=== PATIENT | male | born 1965 | race Caucasian/White ===

== ENCOUNTER 2022-04-08 15:23 | Outpatient (CLI) | payer OTHER, SELFPAY ==
--- OUTSIDE RECORDS SUMMARY | 2022-04-08 07:19 | XMS_ITS | Encounter Summary ---
:1965 Author Organization [facility] Address [address] [place] [address] Care Team Providers Name Role Phone Unassigned, Provider Primary Care Provider Unavailable Reason for Visit Procedure/Equipment (Routine) - Incomplete Specialty Diagnoses / Procedures Referred By Contact Refer red To Contact Diagnoses Primary osteoarthritis of both shoulders Gerry Cheney MD Procedures [place] Injection Shoulder Rt [address] [place], [place] [address] Referral ID Status Reason Start Date Expiration Date Visits V isits Requested Authorized [id number] Incomplete 04/16/2018 07/16/2019 1 1 Encounter Details Date Type Department Care Team Description 04/21/2018 Imaging [facility] Gerry Cheney [place] [address] [facility] [place] [address] [address] [phone] [place], [place] [id number] (Wo rk) Social History Tobacco Use Types Packs/Day Years Used Date Smoking Tobacco: Never Smokeless Tobacco: Never Sex Assigned at Date Recorded Not on file documented as of this encounter Plan of Treatment Not on filedocumented as of this encounter Procedures Procedure Name Priority Date/Time Associated Diagnosis Comme nts FL INJECTION Routine 04/21/2018 9:13 AM Primary osteoarthritis Results for this SHOULDER RT CDT of both shoulders procedure are in the results section. documented in this encounter Results FL Injection Shoulder Rt (04/21/2018 9:13 AM CDT) Anatomical Region Laterality Modality Upper Extremity, Shoulder Radio Fluorosc opy Specimen (Source) Anatomical Collection Method Collection Time Re ceived Time Location / / Volume Laterality 04/21/2018 8:43 AM CDT Narrative 04/21/2018 9:44 AM CDT FINDINGS: The procedure, goals, risks and benefits of the procedure were discussed with the patient, who gave full written and verbal consent to proceed. The location of the procedure was confirmed, the skin marked, and pause for cause perfor med. Using sterile technique, local anesthesia and fluoroscopic guidance a 22 gauge needle was advanced into the right glenohumeral joint capsule. Intraarticular location of the needle tip was confirmed with the injection of 1 mL of Isovue. Subsequently, 40 mg of triamcinolone (40 mg/mL), and 5 mL ropivacaine was administered without complication. The patient rated his pain as a 6/10 nathan or to the injection, and 4/10 immediately following the injection. Procedure Note Primo Smalls MD - 04/21/2018For matting of this note might be different from the original. FINDINGS: The procedure, goals, risks an d benefits of the procedure were discussed with the patient, who gave full written and verbal consent to proceed. The location of the procedure was confirmed, the skin marked, and pause for cause performed. Using sterile technique, local anesthesia and fluoroscopic guidance a 22 gauge needle was advanced into the right glenohumeral joint capsule. Intraarticular location of the needle tip was confirmed with the injection of 1 mL of Isovue. Subsequently, 40 mg of triamcinolone (40 mg/mL), and 5 mL ropivacaine was administered without complication. The patient rated his pain as a 6/10 nathan or to the injection, and 4/10 immediately following the injection. Gerry Cheney MD [facility] documented in this encounter Visit Diagnoses Diagnosis Primary osteoarthritis of both shoulders documented in this encounter Administered Medications Inactive Administered Medications - up to 3 most recent administrations Medication Order MAR Action Action Date Dose Rate Site iopamidol (ISOVUE-200) 41 % Given 04/21/2018 9:30 AM CDT 3 mL injection 3 mL 3 mL, Intracapsular, ONCE, On 04/21/18 at 0930, For 1 dose, EXP: 05/02 ropivacaine (NAROPIN) injection 25 mg Given 04/21/2018 9:30 AM CDT 25 mg 25 mg (5 mL), Intracapsular, ONCE, On Fri04/21/18 at 0930, For 1 dose, EXP: 10/02 triamcinolone acetonide (KENALOG-40) 40 MG/ML Given 9:30 AM CDT 40 mg injection 40 mg 40 mg, Intracapsular, ONCE, On Fri04/21/18 at 0930, For 1 dose, EXP: 09/02 documented in this encounter Care Teams Senior Advisory Relationship Specialty Start Date End Date Unassigned, Provider PCP - General 06/16/[address] [place] [id number] documented as of this encounter
--- OUTSIDE RECORDS SUMMARY | 2022-04-08 07:19 | XMS_ITS | Encounter Summary ---
:1965 Author Organization [facility] Address [address] [place] [address] Care Team Providers Name Role Phone Unassigned, Provider Primary Care Provider Unavailable Reason for Referral Procedure/Equipment (Routine) - Incomplete Specialty Diagnoses / Procedures Referred By Contact Refer red To Contact Diagnoses Primary osteoarthritis of both shoulders Gerry Cheney MD Procedures [place] Injection Shoulder Rt [address] [facility] [address] [place] [address] Referral ID Status Reason Start Date Expiration Date Visits V isits Requested Authorized [id number] Incomplete 04/16/2018 07/16/2019 1 1 Procedure/Equipment (Routine) - Incomplete Specialty Diagnoses / Procedures Referred By Contact Refer red To Contact Diagnoses Primary osteoarthritis of both shoulders Gerry Cheney MD Procedures [place] Injection Shoulder Lt [address] [facility] [facility] [address] [place] [address] Referral ID Status Reason Start Date Expiration Date Visits V isits Requested Authorized [id number] Incomplete 04/16/2018 07/16/2019 1 1 Procedure/Equipment (Routine) - Incomplete Specialty Diagnoses / Procedures Referred By Contact Refer red To Contact Diagnoses Primary osteoarthritis of both shoulders Gerry Cheney MD Procedures XR Shoulder Rt 2+ Views [address] [place] [address] Referral ID Status Reason Start Date Expiration Date Visits V isits Requested Authorized [id number] Incomplete 04/16/2018 07/16/2019 1 1 Procedure/Equipment (Routine) - Incomplete Specialty Diagnoses / Procedures Referred By Contact Refer red To Contact Diagnoses Primary osteoarthritis of both shoulders Gerry Cheney MD Procedures XR Shoulder Lt 2+ Views [address] [facility] [place], [place] [address] Referral ID Status Reason Start Date Expiration Date Visits V isits Requested Authorized [id number] Incomplete 04/16/2018 07/16/2019 1 1 Reason for Visit Reason Comments SHOULDER PAIN bilateral Encounter Details Date Type Department Care Team Description 04/16/2018 Office Visit [facility] Gerry Cheney Primary osteoarthritis CENTER MD Bishnu of both shoulders [address] [facility] [address] [facility] (Primary Dx) [place] [address] [phone] Social History Tobacco Use Types Packs/Day Years Used Date Smoking Tobacco: Never Smokeless Tobacco: Never Sex Assigned at Date Recorded Not on file documented as of this encounter Last Filed Vital Signs Vital Sign Reading Time Taken Comments Blood Pressure - - Pulse - - Temperature - - Respiratory Rate - - Oxygen Saturation - - Inhaled Oxygen Concentration - - Weight 102.1 kg (225 lb) 04/16/2018 12:13 PM CDT Height 174 cm (5' 8.5) 04/16/2018 12:13 PM CDT Body Mass Index 33.71 04/16/2018 12:13 PM CDT documented in this encounter Progress Notes Gerry Cheney MD - 04/16/2018 11:40 AM CDT [facility] Orthopaedic Surgery Consultation 04/16/2018 Chief Complaint: Bilateral Shoulder Pain History of Present Illness: Mil Day is a right hand dominant 53 y.o. male with history of a left shoulder Z[place] procedure who presents for evaluation of bilateral shoulder pain, left worse than right. The patient reports that he injured his left shoulder playing football in high school, and it has never felt quite normal since the injury. He notes that although he did have bilateral shoulder pain, the right pain haslargely improved. Left shoulder pain is localized to the top and posterior shoulder. Sleep is disrupted secondary to pain. Denies numbness or tingling. Denies other history of trauma, injury, or surgery. Referring Provider: Self-Referral, Patient Allergies: No known allergies. Current Medications: Lisinopril. Past Medical History: Hypertension. Limited range of motion in the shoulder. Past Surgical History: Left shoulder [place] procedure. 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 Family History: Cancer in the mother and father. Heart disease in the mother and father. 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 Lives with and 2 children. Enjoys golf, hockey and fishing. The General Medical History Form dated 04/16/2018 was updated and reviewed with the patient; this is located in [employer] in [employer]. Review of Systems: A 15-point review of systems obtained and negative unless as mentioned above. Physical Exam: General: Alert, oriented, no distress. Skin: Cool to touch without erythema, ecchymosis, or lesions. Without dystrophic changes. Neuro: Neurovascularly intact distally. Sensation intact to light touch. Cardiovascular: Capillary refill brisk. Right Shoulder: Range of motion: Forward flexion to 115 degrees, external rotation to 30 degrees, external rotation in abduction to 90 degrees, internal rotation in abduction to 0 degrees. Negative O'namrata's. Negative Speeds. Negative crossarm. Left Shoulder: Range of motion: Forward flexion to 100 degrees, external rotation to 15 degrees, external rotation in abduction to 70 degrees, internal rotation in abduction to 10 degrees. Positive O'namrata's. Negative Speeds. Negative crossarm. Imaging: MR of the bilateral shoulder WO IV contrast, outside imaging (03/20/18): CONCLUSION: Right shoulder 1. Degenerative change involving the glenohumeral articulation with areas of near full-thickness cartilage loss as outlined above. 2. Mild to moderate supraspinatus tendinosis with superimposed small area of interstitial degeneration/delamination. No high-grade partial or full-thickness tear. 3. Moderate AC joint arthrosis. CONCLUSION: Left shoulder 1. Degenerative and postsurgical change involving the glenohumeral articulation. Associated tearing of the labrum. 2. Mild supraspinatus tendinosis without tear. 3. Mild to moderate AC joint arthrosis. I independently reviewed and interpreted the imaging studies above; the results were discussed with the patient. Radiographs of the bilateral shoulder - 2+ views (04/16/18): Right shoulder: 3 views demonstrate glenohumeral osteoarthritis. No fracture or loose body. AC jointarthrosis. Left Shoulder: 3 views demonstrate glenohumeral osteoarthritis. Previous coracoid transfer. AC jointarthrosis. I ordered and independently reviewed and interpreted the imaging studies above; the results were discussed with the patient. Assessment: Diagnosis and Associated Orders ICD-10-CM 1. Primary osteoarthritis of both shoulders M19.011 lisinopril (ZESTRIL) 10 MG tablet M19.012 XR Shoulder Lt 2+ Views XR Shoulder Rt 2+ Views FL Injection Shoulder Lt FL Injection Shoulder Rt Right shoulder standard OA Left shoulder posterior instability OA Mil had a chance to have all of his questions answered. We discussed both surgical and non-surgical treatment options. Non-surgical intervention included stretching and strengthening with physical therapy and fluoroscopically guided intraarticular corticosteroid shoulder injections. At this time, he would like to proceed with the bilateral shoulder corticosteroid injections, after receiving bilateral shoulder x-rays today. Plan: 1. Fluoroscopically guided intraarticular bilateral shoulder injections (04/21/18). 2. Follow-up in 6 weeks. cc: PATIENT SELF REFERRAL, [place] [address] Scribe Disclosure: IKhang, am serving as a scribe to document services personally performed by Gerry Cheney MD at this visit, based upon the provider's statements to me. All documentation has been reviewed by the aforementioned provider prior to being entered into the official medical record. Portions of this medical record were completed by a scribe. UPON MY REVIEW AND AUTHENTICATION BY ELECTRONIC SIGNATURE, this confirms (a) I performed the applicable clinical services, and (b) the recordis accurate. Gerry Cheney MD documented in this encounter Plan of Treatment Not on filedocumented as of this encounter Results FL Injection Shoulder Rt [...] immediately following the injection. Gerry Cheney MD RAD FL FL Injection Shoulder Lt (04/21/2018 8:43 AM CDT) Anatomical Region Laterality Modality Upper Extremity, Shoulder Radio Fluorosc opy Specimen (Source) Anatomical Collection Method Collection Time Re ceived Time Location / / Volume Laterality 04/21/2018 8:03 AM CDT Narrative 04/21/2018 9:42 AM CDT FINDINGS: The procedure, goals, risks and benefits of the procedure were discussed with the patient, who gave full written and verbal consent to proceed. The location of the procedure was confirmed, the skin marked, and pause for cause perfor med. Using sterile technique, local anesthesia and fluoroscopic guidance a 22 gauge needle was advanced into the left glenohumeral joint capsule. Intraarticular l ocation of the needle tip was confirmed with the injection of 1 mL of Isovue. Subsequently, 40 mg of triamcinolone (40 mg/mL), and 5 mL ropivacaine was administered without complication. The patient rated his pain as a 8/10 nathan or to the injection, and 2/10 immediately following the injection. Procedure Note Primo [...] 22 gauge needle was advanced into the left glenohumeral joint capsule. Intraarticular location of the needle tip was confirmed with the injection of 1 mL of Isovue. Subsequently, 40 mg of triamcinolone (40 mg/mL), and 5 mL ropivacaine was administered without complication. The patient rated his pain as a 8/10 nathan or to the injection, and 2/10 immediately following the injection. Gerry Cheney MD RAD FL XR Shoulder Rt 2+ Views (04/16/2018 1:00 PM CDT) Anatomical Region Laterality Modality Upper Extremity, Shoulder Digital Radiog latasha Specimen (Source) Anatomical Location Collection Method / Collectio n Time Received Time / Laterality Volume Narrative 04/16/2018 5:48 PM CDT Right shoulder: 3 views demonstrate glenohumeral osteoarthritis. No fracture or loose body. AC joint arthros is. Left Shoulder: 3 views demonstrate gleno humeral osteoarthritis. Previous coracoid transfer. AC joint arthrosis. Gerry Cheney MD RAD GD XR Shoulder Lt 2+ Views (04/16/2018 1:00 PM CDT) Anatomical Region Laterality Modality Upper Extremity, Shoulder Digital Radiog latasha Specimen (Source) Anatomical Location Collection Method / Collectio n Time Received Time / Laterality Volume Narrative 04/16/2018 5:48 PM CDT Right shoulder: 3 views demonstrate glenohumeral osteoarthritis. No fracture or loose body. AC joint arthros is. Left Shoulder: 3 views demonstrate gleno humeral osteoarthritis. Previous coracoid transfer. AC joint arthrosis. Gerry Cheney MD RAD GD documented in this encounter Visit Diagnoses Diagnosis Primary osteoarthritis of both shoulders - Primary Bilateral shoulder pain, unspecified chr onicity Primary osteoarthritis of both shoulders Primary osteoarthritis of both shoulders documented in this encounter Care Teams Web Services Developer Relationship Specialty Start Date End Date Unassigned, Provider PCP - General 06/16/[address] [place] [id number] documented as of this encounter
--- OUTSIDE RECORDS SUMMARY | 2022-04-08 07:19 | XMS_ITS | Encounter Summary ---
:1965 Author Organization [facility] Address [address] [place] [address] Care Team Providers Name Role Phone Unassigned, Provider Primary Care Provider Unavailable Reason for Visit Procedure/Equipment (Routine) - Incomplete Specialty Diagnoses / Procedures Referred By Contact Refer red To Contact Diagnoses Primary osteoarthritis of both shoulders Gerry Cheney MD Procedures [place] Injection Shoulder Lt [address] [facility] [place], [place] [address] Referral ID Status Reason Start Date Expiration Date Visits V isits Requested Authorized [id number] Incomplete 04/16/2018 07/16/2019 1 1 Encounter Details Date Type Department Care Team Description 04/21/2018 Imaging [place] [facility] [place] [address] [facility] [place] [address] [address] [facility] [phone] [place], [place] [address] (Wo rk) Social History Tobacco Use Types Packs/Day Years Used Date Smoking Tobacco: Never Smokeless Tobacco: Never Sex Assigned at Date Recorded Not on file documented as of this encounter Plan of Treatment Not on filedocumented as of this encounter Procedures Procedure Name Priority Date/Time Associated Diagnosis Comme nts FL INJECTION Routine 04/21/2018 8:43 AM Primary osteoarthritis Results for this SHOULDER LT CDT of both shoulders procedure are in the results section. documented in this encounter Results [place] Injection Shoulder Lt (04/21/2018 8:43 AM [...] immediately following the injection. Gerry Cheney MD [facility] documented in this encounter Visit Diagnoses Diagnosis Primary osteoarthritis of both shoulders documented in this encounter Administered Medications Inactive Administered Medications - up to 3 most recent administrations Medication Order MAR Action Action Date Dose Rate Site iopamidol (ISOVUE-200) 41 % Given 04/21/2018 9:30 AM CDT 3 mL injection 3 mL 3 mL, Intracapsular, ONCE, On Fri04/21/18 at 0930, For 1 dose, EXP: 05/02 [...] 09/02 documented in this encounter Care Teams Fine Arts Packer Relationship Specialty Start Date End Date Unassigned, Provider PCP - General 06/16/[address] [place] [id number] documented as of this encounter
--- OUTSIDE RECORDS SUMMARY | 2022-04-08 07:19 | XMS_ITS | Encounter Summary ---
:1965 Author [facility] Address [address] [place] [address] Care Team Providers Name Role Phone Unassigned, Provider Primary Care Provider Unavailable Encounter Details Date Type Department Care Team Description 07/08/2020 scott Wilson [phone] Social History Tobacco Use Types Packs/Day Years Used Date Smoking Tobacco: Never Smokeless Tobacco: Never Sex Assigned at Date Recorded Not on file documented as of this encounter Progress Notes SCOTT PULIDO PROVIDER - 07/19/2020 12:00 AM CST scott Addendum From Provider Visit Date July 08, 2020 Addendum Date July 19, 2020 Mil Day Date of : 63 Provider Marilyn Chinchilla, Nurse Practitioner Note From Provider Maxx Mcneal, Thank you for the callback. To recap: you were treated for sinusitis on 07/08 and you now have minimal sinus pain/pressure. You do feel off with some lightheadedness. You feel your sinuses are inflamed and dry and your upper chest feels tight. You just traveled to [place], [place] yesterday. You are using Flonase. I would suggest adding saline nasal spray too. I actually would give this 2-3 days and then check back in with us if your are still experiencing some symptoms. You mentioned you are concerned about pneumonia. You have no fever, an occasional cough with some production of mucus. Itdoesn't sound like pneumonia at this point. Take good care. BRADLEY Sanders KEEPER SCOTT PULIDO PROVIDER - 07/12/2020 12:00 AM CST scott Addendum From Provider Visit Date July 08, 2020 Addendum Date July 12, 2021 Mil Day Date of : 63 Provider Britt Miguel, Nurse Practitioner Note From Provider Maxx Jaeger,Thanks for Requesting a Call Back. As we discussed, I would recommend continuing on with your antibiotics as prescribed and adding flonase for the nasal pressure. Keep us posted and let us know how things go after you have completed your dosing. If you have any new or worsening symptoms, just call. Take care, Britt Archibald APRN KEEPER [facility] - 07/08/2020 12:00 AM CST scott Treatment Plan Diagnosis Sinusitis Visit Date July 08, 2020 Mil Day Date of : 63 Provider Keely Quinones, Nurse Practitioner Note From Provider Maxx Jaeger, So sorry to hear you???re having these symptoms. I???ve sent a prescription for an antibiotic to your pharmacy. Let???s target your inflammation in order to get you feeling better CHUCK while your antibiotic is beginning to work! The 800 mg of Ibuprofen (4 tablets of the 200 mg strength ibuprofen) with food every 8 hours around the clock for the next 3 days will greatly decrease your inflammation.?? Also taking over the counter Mucinex and drinking lots of fluids will help.??Taking Mucinex, your antibiotic, and ibuprofen all at the same time is safe and necessary to target your symptoms.? ?If you have any questions or concerns, please Request a Call Back at any time. Feel better soon!??BRADLEY Riggs. Treatment Plan Since you have a bacterial infection, let's try an antibiotic. I sent a prescription to [facility]/pharmacy. I???ve also listed a few self-care tips to soothe your symptoms while the antibiotic kills the bacteria. If your symptoms don't improve after 4 days, or if you have questions, select Help to Request a Call Back and we'll adjust your treatment for free. Order(s) amoxicillin-pot clavulanate 275-970 mg tablet Take 1 tablet oral twice a day for 7 days Note: Refills: None Sent To: [facility]/pharmacy [place] [address] [place] [address] Treatment Plan Self Care Tip Topics Inflammation Relief with Ibuprofen Avoid Decongestants and Antihistamines Warm Packs Steam Therapy What to Expect Our goal is to treat the infection and to reduce the inflammation of your sinus tissues to promote drainage. This will make you feel better quickly. If you follow the recommendations I made on the Treatment tab, your symptoms should begin to improve in 4 days of following this treatment plan. If your symptoms haven???t improved after 4 days, select Help to Request a Call Back and we???ll call you back in about an hour to adjust your treatment for free. What to Watch Out For Give us a call immediately if you experience: ??? Vision changes ??? Redness and swelling of the eyes or face ??? Increasing congestion ??? Worsening pain ??? High fevers My Conditions, Orders, Allergies as of July 08, 2020 Standard condition list High Blood Pressure (Hypertension) Current orders amoxicillin-pot clavulanate (amoxicillin-pot clavulanate) lisinopril (lisinopril) Allergies None [employer] Information [employer] [facility] [employer] We are an online clinic open 03/02. If you have any questions or comments about this visit, please call or email [email or web address] documented in this encounter Plan of Treatment Not on filedocumented as of this encounter Visit Diagnoses Not on filedocumented in this encounter Care Teams Side Splitter Relationship Specialty Start Date End Date Unassigned, Provider PCP - General 06/16/[address] [place] [id number] documented as of this encounter
--- OUTSIDE RECORDS SUMMARY | 2022-04-08 07:19 | XMS_ITS | Encounter Summary ---
:1965 Author Organization [facility] Address [address] [place] [address] Care Team Providers Name Role Phone Unassigned, Provider Primary Care Provider Unavailable Reason for Visit Procedure/Equipment (Routine) - Incomplete Specialty Diagnoses / Procedures Referred By Contact Refer red To Contact Diagnoses Primary osteoarthritis of both shoulders Gerry Cheney MD Procedures XR Shoulder Lt 2+ Views [address] [facility] [place], [place] [address] Referral ID Status Reason Start Date Expiration Date Visits V isits Requested Authorized [id number] Incomplete 04/16/2018 07/16/2019 1 1 Encounter Details Date Type Department Care Team Description 04/16/2018 Imaging [facility] Gerry Cheney Bilateral shoulder [address] [facility] Roma Goetz MD pain, unspecified [place], [place] [address] [address] [facility] chronicity [phone] [place] [address] (Wo rk) Social History Tobacco Use Types Packs/Day Years Used Date Smoking Tobacco: Never Smokeless Tobacco: Never Sex Assigned at Date Recorded Not on file documented as of this encounter Plan of Treatment Not on filedocumented as of this encounter Procedures Procedure Name Priority Date/Time Associated Diagnosis Comme nts XR SHOULDER LT 2+ Routine 04/16/2018 1:00 PM Bilateral shoulde r Results for this VIEWS CDT pain, unspecified procedure are in chronicity the results section. XR SHOULDER RT 2+ Routine 04/16/2018 1:00 PM Bilateral shoulde r Results for this VIEWS CDT pain, unspecified procedure are in chronicity the results section. documented in this encounter Results XR Shoulder Rt 2+ Views (04/16/2018 1:00 [...] Previous coracoid transfer. AC joint arthrosis. Gerry HAUSER GD XR Shoulder Lt 2+ Views (04/16/2018 [...] documented in this encounter Visit Diagnoses Diagnosis Bilateral shoulder pain, unspecified chr onicity documented in this encounter Care Teams Certified Medical Technician Relationship Specialty Start Date End Date Unassigned, Provider PCP - General 06/16/[address] [place] [address] documented as of this encounter
--- OUTSIDE RECORDS SUMMARY | 2022-04-08 07:19 | XMS_ITS | Encounter Summary ---
:1965 Author Organization [facility] Address [address] [place] [address] Care Team Providers Name Role Phone Unassigned, Provider Primary Care Provider Unavailable Reason for Visit Procedure/Equipment (Routine) - Incomplete Specialty Diagnoses / Procedures Referred By Contact Refer red To Contact Procedures Gerry Cheney MD Foreign Image(S) MR Shoulder [address] [facility] [address] [place], [place] [address] Referral ID Status Reason Start Date Expiration Date Visits V isits Requested Authorized [id number] Incomplete 04/16/2018 07/16/2019 1 1 Encounter Details Date Type Department Care Team Description 03/20/2018 Imaging Radiology PACS Gerry Cheney MD [address] [place] [address] [place] [address] [place] [address] (Wo rk) Social History Tobacco Use Types Packs/Day Years Used Date Smoking Tobacco: Never Assessed Sex Assigned at Date Recorded Not on file documented as of this encounter Plan of Treatment Not on filedocumented as of this encounter Procedures Procedure Name Priority Date/Time Associated Diagnosis Comme nts FOREIGN IMAGE(S) MR Routine 03/20/2018 12:00 AM R esults for this SHOULDER RT CDT procedure are i n the results section. documented in this encounter Results Foreign Image(S) MR Shoulder Rt (03/20/2018 12:00 AM CDT) Specimen (Source) Anatomical Location Collection Method / Collectio n Time Received Time / Laterality Volume Narrative PN POCT - 04/16/2018 12:14 PM CDT These outside images have been uploaded into PACS. If the results were provided, they will be located in the pa marisel's chart under the Media or Imaging tab. Gerry Cheney MD RAD NON-REPORTABLES Performing Organization Address City/State/ZIP Code Phon e Number POCT PN POCT documented in this encounter Visit Diagnoses Not on filedocumented in this encounter Care Teams Video Production Specialist Relationship Specialty Start Date End Date Unassigned, Provider PCP - General 06/16/[address] [place] [address] documented as of this encounter
--- OUTSIDE RECORDS SUMMARY | 2022-04-08 07:19 | XMS_ITS | Encounter Summary ---
:1965 Author Organization [facility] Address [address] [address] Care Team Providers Name Role Phone Unavailable Primary Care Provider Unavailable Encounter Details Date Type Department Care Team Description 12/06/1988 Emergency [facility] Sinan Camacho MD [address] [place] [address] [address] [facility]. Sinan Camacho MD [address] [place] [address] [place] [address] Social History Tobacco Use Types Packs/Day Years Used Date Smoking Tobacco: Never Assessed Sex Assigned at Date Recorded Not on file documented as of this encounter Plan of Treatment Not on filedocumented as of this encounter Procedures Procedure Name Priority Date/Time Associated Comments Diagnosis CONVERSION DEFAULT Routine 12/06/1988 10:06 PM Re sults for this INTERFACE ORDER CDT procedure ar e in the results section. CONVERSION DEFAULT Routine 12/06/1988 9:55 PM Res ults for this INTERFACE ORDER CDT procedure ar e in the results section. CONVERSION DEFAULT Routine 12/06/1988 9:55 PM Res ults for this INTERFACE ORDER CDT procedure ar e in the results section. documented in this encounter Results Conversion Default Interface Order (12/06/1988 10:06 PM CDT) [facility] Method Time Signature Color YELLOW No normal HP CONVERSION range Turbidity CLEAR No normal HP CONVERSION range Specific [place] 1.013 No normal HP CONVERSION Urine range pH Urine 6.5 No normal HP CONVERSION range Protein Urine NEGATIVE No normal HP CONVERSION range Glucose, NEGATIVE No normal HP CONVERSION Qualitative U range Ketones NEGATIVE No normal HP CONVERSION range U BILI NEGATIVE No normal HP CONVERSION range Blood Urine NEGATIVE No normal HP CONVERSION range Nitrite Urine NEGATIVE No normal HP CONVERSION range Leukocyte NEGATIVE No normal HP CONVERSION Esterase Urine range Urobilinogen NEGATIVE No normal HP CONVERSION Urine range Specimen (Source) Anatomical Collection Method Collection Time Re ceived Time Location / / Volume Laterality 12/06/1988 10:06 PM CDT Sinan Camacho MD LAB_1 Performing Organization Address City/State/ZIP Code Phon e Number HP CONVERSION Conversion Default Interface Order (12/06/1988 9:55 PM CDT) [facility] gist Method Time Signature White Blood Cell 8.6 No normal HP CONVERSION Count range Red Blood Cell 5.26 No normal HP CONVERSION Count range Hemoglobin 15.8 No normal HP CONVERSION range Hematocrit 46.4 No normal HP CONVERSION range Mean Corpuscular 88.2 No normal HP CONVERSION Volume range Mean Corpuscular 30.0 No normal HP CONVERSION Hemoglobin range Mean Corpuscular 34.1 No normal HP CONVERSION Hemoglobin Conc range [place] RDW 12.8 No normal HP CONVERSION range Platelet Count 305 No normal HP CONVERSION range Neutrophils 82 No normal HP CONVERSION range Lymphocytes 15 No normal HP CONVERSION range Monocyte 2 No normal HP CONVERSION range Basophils 1 No normal HP CONVERSION range Platelet NORMAL No normal HP CONVERSION Estimate range WBC Correction 8.6 No normal HP CONVERSION For NRBC range Specimen (Source) Anatomical Collection Method Collection Time Re ceived Time Location / / Volume Laterality 12/06/1988 9:55 PM CDT Sinan Camacho MD LAB_1 Performing Organization Address City/State/ZIP Code Phon e Number HP CONVERSION Conversion Default Interface Order (12/06/1988 9:55 PM CDT) athologist Signature Amylase Serum 26 No normal HP CONVERSION range Specimen (Source) Anatomical Collection Method Collection Time Re ceived Time Location / / Volume Laterality 12/06/1988 9:55 PM CDT Sinan Camacho MD LAB_1 Performing Organization Address City/State/ZIP Code Phon e Number HP CONVERSION documented in this encounter Visit Diagnoses Not on filedocumented in this encounter
--- OUTSIDE RECORDS SUMMARY | 2022-04-08 07:19 | XMS_ITS | Encounter Summary ---
:1965 Author Organization [facility] [facility] Address [address] [place] [address] Care Team Providers Name Role Phone Unassigned, Provider Primary Care Provider Unavailable Reason for Visit Reason Comments Dental Conversion Legacy EDR to [place] convers ion Encounter Details Date Type Department Care Team Description 12/19/2016 Dental Conversion [facility] Nicol Sarabia, [facility] [address] [address] [phone] (Wo rk) Social History Tobacco Use Types Packs/Day Years Used Date Smoking Tobacco: Never Assessed Sex Assigned at Date Recorded Not on file documented as of this encounter Discharge Summaries Interface, In Edr Dental Conversion - 04/05/2017 12:00 AM CDT EDR Pt Notes: 07/03/15 NS - left mess re fail hyg appt Interface, In Edr Dental Conversion - 12/01/2013 12:00 AM CDT EDR dismissed Clerical Popup Note, entered 12/01/2013: pt needs to sign a tx est Interface, In Edr Dental Conversion - 03/05/2012 12:00 AM CDT EDR Provider Popup Note, entered 03/05/2012: perio maint every 6 mo , exam 12 mo , DDF 24 mo Interface, In Edr Dental Conversion - 09/17/2011 12:00 AM CST EDR dismissed Popup Note, entered 09/17/2011: Pt has a credit on acct/New pt coupon L SETTER Interface, In Edr Dental Conversion - 09/17/2011 12:00 AM CST EDR dismissed Popup Note, entered 09/17/2011: Pt has a credit on acct/New pt coupon L SETTER documented in this encounter Miscellaneous Notes Miscellaneous - Interface, In Edr Dental Conversion - 07/03/2015 12:00 AM JEWEL SETTER 07/03/2015: No Show Call: left mess re fail hyg L SETTER Miscellaneous - Interface, In Edr Dental Conversion - 06/22/2015 12:00 AM JEWEL SETTER 06/22/2015: Left Message: lm for pt to call back shows that ins ended 03/13/2015 need to go over fees L SETTER Miscellaneous - Interface, In Edr Dental Conversion - 04/07/2013 12:00 AM CDT 04/07/2013: Overdue Recall Call: 04/07/13 LM to sched future prophy [email or web address] Miscellaneous - Interface, In Edr Dental Conversion - 08/12/2011 12:00 AM JEWEL SETTER 08/12/2011: New Patient Coupon Offer: applied to acct today came over on the fax machine L SETTER Miscellaneous - Interface, In Edr Dental Conversion - 09/03/2010 12:00 AM JEWEL SETTER 09/03/2010: Outgoing Phone Call: Called and asked for the pt and someone hung up the phone on me L SETTER Miscellaneous - Interface, In Edr Dental Conversion - 07/25/2010 12:00 AM JEWEL SETTER 07/25/2010: Outgoing Phone Call: Lm for pt to call regarding credit on acct L SETTER Miscellaneous - Interface, In Edr Dental Conversion - 06/21/2010 12:00 AM JEWEL SETTER 06/21/2010: Outgoing Phone Call: Called and talked to his son and he told me he would give dad a mess for me. L SETTER documented in this encounter Plan of Treatment Not on filedocumented as of this encounter Visit Diagnoses Not on filedocumented in this encounter Care Teams Nuclear Technician Relationship Specialty Start Date End Date Unassigned, Provider PCP - General 06/16/[address] [place] [phone] documented as of this encounter
--- OUTSIDE RECORDS SUMMARY | 2022-04-08 07:19 | XMS_ITS | Encounter Summary ---
:1965 Author Organization [facility] Address [address] [place] [address] Care Team Providers Name Role Phone Unassigned, Provider Primary Care Provider Unavailable Reason for Visit Procedure/Equipment (Routine) - Incomplete Specialty Diagnoses / Procedures Referred By Contact Refer red To Contact Procedures Gerry Cheney MD Foreign Image(S) MR Shoulder [address] [facility] [address] [place], [place] [address] Referral ID Status Reason Start Date Expiration Date Visits V isits Requested Authorized [id number] Incomplete 04/16/2018 07/16/2019 1 1 Encounter Details Date Type Department Care Team Description 03/20/2018 Imaging Radiology PACS Gerry Cheney MD [address] [place] [address] [place] [address] [place] [address] (Wo rk) Social History Tobacco Use Types Packs/Day Years Used Date Smoking Tobacco: Never Assessed Sex Assigned at Date Recorded Not on file documented as of this encounter Plan of Treatment Not on filedocumented as of this encounter Procedures Procedure Name Priority Date/Time Associated Diagnosis Comme nts FOREIGN IMAGE(S) MR Routine 03/20/2018 12:05 AM R esults for this SHOULDER LT CDT procedure are i n the results section. documented in this encounter Results Foreign Image(S) MR Shoulder Lt (03/20/2018 12:05 AM CDT) Specimen (Source) Anatomical Location Collection Method / Collectio n Time Received Time / Laterality Volume Narrative PN POCT - 04/16/2018 12:17 PM CDT These outside images have been uploaded into PACS. If the results were provided, they will be located in the pa marisel's chart under the Media or Imaging tab. Gerry Cheney MD RAD NON-REPORTABLES Performing Organization Address City/State/ZIP Code Phon e Number POCT PN POCT documented in this encounter Visit Diagnoses Not on filedocumented in this encounter Care Teams Strike Off Machine Operator Relationship Specialty Start Date End Date Unassigned, Provider PCP - General 06/16/[address] [place] [address] documented as of this encounter
--- OUTSIDE RECORDS SUMMARY | 2022-04-08 07:19 | XMS_ITS ---
:1965 Author Care Team Providers Name Role Phone JASMIN CRANE MD Primary Care Provider [phone] Allergies Code Code System Name Reaction Severity Status Onset 274475 RxNorm Demerol ? ? Active 03/31/2015 Medications Name Status Start Date Stop Date ? ? amoxicillin 875 mg-potassium clavulanate 125 mg tablet Completed ? 12/12/2020 TAKE 1 TABLET BY MOUTH TWICE A DAY ciprofloxacin 500 mg tablet Completed ? 07/2020 lisinopril 10 mg tablet Active ? Not avai lable Problems Name Status Onset Date Source ? Increased Frequency of Urination Active 04/06/2012 History Procedures Date Name Performed by ? 03/14/2021 Colonoscopy Information not avai lable ? Vasectomy Information not avai lable ? Prostate Surgery Information not avai lable ? Orthopedic Surgery Information not avai lable ? Hernia Repair Information not avai lable Results Lab Results Date Name Specimen Result Interpretation Description Value Range Status Address ? 12/12/2020 Urinalysis, Dipstick Urine ? No observation recor ded. ? Urinalysis, Dipstick ? pH-Status 7.0 ? ? Past Encounters 12/12/2020 Prostatitis Aguilar Salamanca MD: [address] [facility] [place] [address], Ph. Social History Tobacco Smoking Status Never Smoker Vaccine List None recorded. Plan of Care Reminders Provider Appointments None recorded. ? ? Lab None recorded. ? ? Referral None recorded. ? ? Procedures None recorded. ? ? Surgeries None recorded. ? ? Imaging None recorded. ? ? Vitals Height Weight BMI 5 ft 10 in 215 lbs 30.8 kg/m2
--- OUTSIDE RECORDS SUMMARY | 2022-04-08 07:19 | XMS_ITS | Clinical Summary ---
:1965 Author Organization [facility] Address [address] [place] [address] Care Team Providers Name Role Phone Unassigned, Provider Primary Care Provider Unavailable Source Comments You are receiving this document as you are listed as the primary care provider,follow-up provider, or the patient has been referred to you for consultation.This is in compliance with the Medicare and Medicaid EHR Incentive Program,which states Providers who transition their patient to another setting of careor provider of care or refers their patient to another provider of care shouldprovide summarycare record for each transition of care or referral. [facility] Allergies No known active allergies Medications Medication Sig Dispensed Refills Start Date End Date Status lisinopril (ZESTRIL) Take 10 mg by 0 Active 10 MG mouth daily. tabletIndications: Indications: High Hypertension Blood Pressure Disorder Active Problems No known active problems Social History Tobacco Use Types Packs/Day Years Used Date Smoking Tobacco: Never Smokeless Tobacco: Never Sex Assigned at Date Recorded Not on file Last Filed Vital Signs Vital Sign Reading Time Taken Comments Blood Pressure - - Pulse - - Temperature - - Respiratory Rate - - Oxygen Saturation - - Inhaled Oxygen Concentration - - Weight 102.1 kg (225 lb) 04/16/2018 12:13 PM CDT Height 174 cm (5' 8.5) 04/16/2018 12:13 PM CDT Body Mass Index 33.71 04/16/2018 12:13 PM CDT Plan of Treatment Health Maintenance Due Date Last Done Comments Colon Cancer Screening Plan 1965 Due Hep C Screening (Preventive 1965 Services) HepB (1) 1965 PSA Screening Discussion 1965 COVID-19 Vaccine (#1) 1965 HIV Screening (Preventive 1980 Services) Adult Preventive Visit 01/29/1982 DTaP/Tdap/Td (1 - Tdap) 01/29/1983 Cholesterol 01/29/1999 Zoster/Shingles (1 of 2) 01/29/2014 Influenza (#1) 2022 04/10/2020, 04/16/2019, 04/27/2018, Additional history exists HepA Aged Out No longer eligib le based on patient 's age to complete this topic Hib Aged Out No longer eligib le based on patient 's age to complete this topic IPV (Polio) Aged Out No longer eligib le based on patient 's age to complete this topic MCV4 Aged Out No longer eligib le based on patient 's age to complete this topic Pneumococcal Aged Out No longer eligib le based on patient 's age to complete this topic Insurance Payer Benefit Plan / Subscriber ID Effective Dates Phone Addre ss Type Group BCBS BCBS OUT OF [id number] 2017-Present [address] [address] [place] [address] (Work) [phone] [place] Personal/Family Self 1965 [address] [phone] [place], [place] (Work[place] [phone] [place] Personal/Family Self 1965 [address] [phone] [place] (Work) [phone] [place] Personal/Family Self 1965 [address] [phone] [place], [place] (Work) [phone] Care Teams Oil Well Fishing Tool Technician Relationship Specialty Start Date End Date Unassigned, Provider PCP - General 06/16/[address] [place] [address], [place] [address]
[2022-04-08 13:35] LABS: Albumin* 4.4 g/dL (3.3-5.0)
[2022-04-08 13:36] LABS: Chloride* 103 mmol/L (96-114); Sodium* 137 mmol/L (135-149)
[2022-04-08 13:38] LABS: Aspartate Amino Transferase* 33 U/L (12-35); Bilirubin Total* 0.8 mg/dL (0.1-1.5); Carbon Dioxide* 27 mmol/L (20-32); Cholesterol* 128 mg/dL (90-199); Creatinine* 1.1 mg/dL (0.5-1.5); Estimated Glomerular Filt Rate 78 ml/min; Total Protein* 6.7 g/dL (6.0-8.3)
[2022-04-08 13:39] LABS: Alanine Aminotransferase* 29 U/L (4-50); Alkaline Phosphatase* 69 U/L (40-150); Blood Urea Nitrogen* 13 mg/dL (7-30); Glucose* 101 mg/dL (60-115); HDL Cholesterol* 42 mg/dL (>=40); LDL Cholesterol Calculated 64 mg/dL (<100); Triglycerides* 108 mg/dL (40-149)
[2022-04-08 14:10] LABS: PSA Screen* 0.54 ng/mL (0.10-4.00)
[2022-04-08 14:37] LABS: Potassium* 4.3 mmol/L (3.6-5.1)
== END 2022-04-08 15:24 | disposition home or self-care (01) ==
PROVIDERS: PCP Physician Assistant Medical; Visit Provider Physician Assistant Medical
DX: Z00.00 Encounter for general adult medical examination without abnormal findings (principal); E78.5 Hyperlipidemia, unspecified; I10 Essential (primary) hypertension; Z12.5 Encounter for screening for malignant neoplasm of prostate
CPT/HCPCS: 80053; 80061; 84153

== ENCOUNTER 2023-05-06 08:16 | Outpatient (CLI) | payer OTHER, SELFPAY | END 2023-05-06 08:17 | disposition home or self-care (01) | LOC: NFLDREF 05-09 06:31 | PROVIDERS: PCP Physician Assistant Medical; Referring Provider Physician Assistant Medical; Visit Provider Physician Assistant Medical | DX: Z00.00 Encounter for general adult medical examination without abnormal findings (principal); I10 Essential (primary) hypertension; E78.5 Hyperlipidemia, unspecified; E78.2 Mixed hyperlipidemia; Z12.5 Encounter for screening for malignant neoplasm of prostate | CPT/HCPCS: 80053; 80061; 84153 ==

== ENCOUNTER 2024-03-18 12:43 | Outpatient (CLI) | payer OTHER, SELFPAY ==
--- OUTSIDE RECORDS SUMMARY | 2024-03-18 12:45 | XMS_ITS | Data Portability ---
[facility] Organization [facility] Address [address] [place] [address] Care Team Providers Care Mortgage Advisor Name Role Phone JASMIN CRANE Primary Care Provider Assessment No assessment recorded. Plan of Treatment Reminders Order Date Submit Date Provider Last Modified By Organization Details Last Modified Time Details Appointments None recorded. Lab urinalysi s, dipstick 2020 021 mgneiting Not available 15:24:03 Referral None recorded. Procedures None recorded. Surgeries None recorded. Imaging None recorded. Medication Orders None recorded. Patient TargetsNo targets recorded. Patient InstructionsNo instructions recorded. Reason for Referral None Reported. Results Created Date Observation Date Name Description Value Unit Range Abnormal Flag Note LastModifiedBy Organization Detail LastModifiedTime 12/12/2020 urina lysis , dipst ick pH-Status 7.0 Not Available [facility] [address], [place], [address], 12/12/2020 15:23:27 12/14/19 21 12/12/2020 bladd er scan (PROC ) No observ ation record ed. BARCODE Not Available 2020 10:42:59 Result Notes None recorded. Problems Name Problem SNOMED Code Status Onset Date Resolution Date Notes Provider Name and Address Organization Details Recorded Time Increased frequency of urination 330826054 Active 2011 788.41 : FREQUENCY Not Available [employer] 0 02:01:32 Problem Notes None recorded. Procedures Surgical History Date Name Laterality Status Provider Name and Address Organization Details Recorded Time Colonoscopy completed Winter Marie [facility] 04/20/2021 12:19:51 Bladder Scan completed Aguilar Saalmanca MD [address] [place] [address],[address], [address], [facility] 12/12/2020 15:30:25 Hernia Repair completed Aguilar Salamanca MD [address] [place] [address],[address], [place], [place], [address] [place] [address], [facility] 12/12/2020 15:29:03 Orthopedic Surgery completed Aguilar Salamanca MD [address] [place] [address],[address], [place], [place], [address] [place] [address], [facility] 12/12/2020 15:29:19 Prostate Surgery completed Aguilar Salamanca MD [address] [place] [address],[address], [place], [place], [address] [place] [address], [facility] 12/12/2020 15:29:36 Vasectomy completed Aguilar Salamanca MD [address] [place] [address],[address], [place], [place], [address] [place] [address], [facility] 12/12/2020 15:29:43 Imaging Results Imaging Date Name Status LastModified by Organiz ation Details LastModified Time 12/12/2020 bladder scan (PROC) completed BARCODE Information not available 12/13/2020 10:42:59 Procedure Notes None recorded. Medical Equipment None Reported. Allergies Allergen ID Allergen Name Allergen Category Reaction Reaction Severity Criticality Documentation Date Start Date Code Code System Note Provider Name and Address Organization Details Recorded Time 108849 Demerol medicatio n Not available Not available Not available 12/30/20192014 38478 1 RxNorm React ion: ANXIE TY Not Available [employer] 0 00:46:17 Medications Name Sig Start Date Stop Date Status Note LastModified by Organization Details LastModified Time ciprofloxacin 500 mg tablet 12/12 completed Not Available Not Available Not Available lisinopril 10 mg tablet TAKE 1 TABLET BY MOUTH DAILY. active Not Available Not Available No t Available amoxicillin 875 mg-potassium clavulanate 125 mg tablet TAKE 1 TABLET BY MOUTH TWICE A DAY 12/12 completed Not Available Not Available Not Available Vitals Date Recorded Body height Body mass index (BMI) Body weight Provider Name and Address Organization Details Last Updated DateTime 12/12/2020 177.8 cm 30.8 kg/m2 46000.36 g Aguilar Salamanca MD [address] [place] [address],[address], [address] 12/12/2020 15:27:16 Social History Question Answer Notes LastModified by Organizat ion Details LastModified Time Tobacco Smoking Status Never Smoker Aguilar Salamanca MD [address] [place] [address],[address], [address] 12/12/2020 15:28:08 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 12/12/2020 [email or web address] Information not available 12/12/2020 Sex: Unknown Functional Status None recorded. Mental Status None recorded. Family History Relationship Description Onset Age of this Age Resolved Age Notes Mother Family history of malignant neoplasm Father Family history of malignant neoplasm Medical History Condition Response Sexually Transmitted Infection N Diabetes N Bleeding Disorder N Other N High Blood Pressure Y Kidney Stones N High Cholesterol N GERD/Acid Reflux N Heart Disease N Cancer N Lung Disease N Depression N Past Encounters Encounter ID Performer Location Encounter Start Date Encounter Closed Date Diagnosis/Indication Diagnosis SNOMED-CT Code Diagnosis ICD10 Code [id number] Aguilar Salamanca MD [facility] [address] [place] [address] 12/12/2020 14:51:11 12/14/2020 09:49:24 Prostatitis 8136307 N41.9 Health Concerns Section Related Observation LastModified by Organization Detai ls LastModified Time None Recorded Concern Status LastModified by Organization Details LastModified Time None Recorded Advance Directives Directive None Recorded Payers Encounter Date Sequence Insurance Name Policy Number Policy Anderson Covered Member ID Anderson Member ID Guarantor Name 12/12/2020 1 [facility] [id number] [place] Day [id number] Mil Day Notes Date Note Type Note Provider Name and Address Organization Details Recorded Time 12/12/2020 text/html HPI Notes: 55 YO M here for bladder wall thickening and prostatitis. CT done on 11/29/20. Was having more frequency. Was on an antibiotic course 2 weeks ago for prostatitis. LUTS has gotten better since the antibiotic. He's had prostatitis prior. He has perineal discomfort. It is worse when he sits on his bike. He felt this last year when bike riding outside. He does exercise every other day; a lot of lifting. Negative family history for prostate, breast or ovarian cancers. His Father had mesothelioma. Mohter with liver cancer. He's had urinary frequency in the past. Nocturia 3-4x. Aguilar Salamanca MD [address], [place], [address], [facility] 12/12/2020 15:47:47
--- OUTSIDE RECORDS SUMMARY | 2024-03-18 12:45 | XMS_ITS | Clinical Summary ---
Author Organization [facility] Address [address] [place] [address] Care Team Providers Care Bridge Design Engineer Name Role Phone System, Provider Not In Primary Care Provider Un available Allergies Active Allergy Reactions Criticality Noted Date Comments Demerol Visual Disturbance 01/10/2005 Penicillins Rash 01/10/2005 Tetanus Toxoid Rash 01/10/2005 Tetanus-Diphtheria Toxoids Td 04/16/2007 High fever,nausea Medications Medication Sig Dispensed Refills Start Date End Date Status ORDER FOR DMEIndications:Kevyn watkins general medical examination at a health care facility Blood pressure Cuff 1 0 03/18/2006 Active MULTIPLE VITAMIN OR TABSIndications:Acut e prostatitis,Disorder s of bursae and tendons in shoulder region, unspecified None Entered Act mallorie RA FIBER SUPPLEMENT ORIndications:Routin e general medical examination at a health care facility 1-2 pills qd Ac tive AVODART 0.5 MG OR CAPSIndications:Cordell gn localized hyperplasia of prostate with urinary obstruction and other lower urinary tract symptoms (LUTS)(600.21) 1 CAPSULE DAILY 90 4 05/23/2008 Active DOXAZOSIN MESYLATE 4 MG OR TABS 1 TABLET DAILY Active LISINOPRIL 10 MG OR TABSIndications:Hype rtension 1 tab PO QD (Once per day) MD appointment needed 90 0 06/29/2009 Active Active Problems Problem Noted Date Diagnosed Date CARDIOVASCULAR SCREENING; LDL GOAL LESS THAN 130 05/13/2010 HTN (hypertension) 05/23/2008 Overview: (Problem list name updated by automated process. Provider to review and confirm.) Family History Medical History Relation Comments Hypertension Brother Psychotic Disorder Brother Cancer Father aspestosis Hypertension Maternal Grandfather Hypertension Mother Hypertension Sister Relation Status Comments Brother Alive Daughter Alive Father Maternal Grandfather Maternal Grandmother Mother Alive Paternal Grandfather Paternal Grandmother Sister Alive Son Alive Social History Tobacco Use Types Packs/Day Years Used Date Smoking Tobacco: Never Alcohol Use Standard Drinks/Week Comments No 0 (1 standard drink = 0.6 oz pur e alcohol) Adolescent Education Answer Date Record ed Getting School Help Needed Not on file 04/10 Sex and Gender Information Value Date Recorded Sex Assigned at Not on file Gender Identity Not on file Sexual Orientation Not on file Last Filed Vital Signs Vital Sign Reading Time Taken Comments Blood Pressure 120/79 04/10/2023 1:00 AM CDT Pulse 53 04/10/2023 1:00 AM CDT Temperature 36.2 ??C (97.1 ??F) 04/09/2023 9:49 PM CD T Respiratory Rate 18 04/10/2023 1:00 AM CDT Oxygen Saturation 96% 04/10/2023 1:00 AM CDT Inhaled Oxygen Concentration - - Weight 103.4 kg (228 lb) 06/29/2008 11:00 AM ASSISTANT MANAGER Height 174 cm (5' 8.5) 04/16/2007 9:00 AM CDT Body Mass Index 34.16 04/16/2007 9:00 AM CDT Plan of Treatment Health Maintenance Due Date Last Done Comments ADVANCE CARE PLANNING 1965 ANNUAL REVIEW OF HM ORDERS 1964 CT COLONOGRAPHY 1964 FIT 1965 FLEX SIG 1965 sDNA (Cologuard) 1965 Pneumococcal Vaccine: Pediatrics (0 to 5 Years) and At-Risk Patients (6 to 64 Years) (1 of 2 - PCV) 01/29/1970 HIV SCREENING 01/29/1979 HEPATITIS C SCREENING 01/29/1982 DTAP/TDAP/TD IMMUNIZATION (1 - Tdap) 01/29/1989 YEARLY PREVENTIVE VISIT 05/23/2009 05/23/20 08, 04/16/2007, 03/18/2006, Additional history exists LIPID 05/23/2013 05/23/2008, 1010/2006, 03/24/2006, Additional history exists ZOSTER IMMUNIZATION (2 of 2) 08/15/2021 06/20/2021 PHQ-2 (once per calendar year) 2023 RSV VACCINE (1 - 1-dose 60+ series) 2024 COVID-19 Vaccine (2022- season) 2024 07/19/2021, 10/21/2020, 09/30/2020 INFLUENZA VACCINE (#1) 2024 , 05/08/2021, 04/10/2020, Additional history exists GLUCOSE 04/09/2026 04/09/2023, 05/14, 04/16/2007, Additional history exists COLONOSCOPY 03/14/2031 03/14/2021 COLORECTAL CANCER SCREENING 03/14/2031 HPV IMMUNIZATION Aged Out No longer e ligible based on patient's age to complete this topic MENINGITIS IMMUNIZATION Aged Out No l onger eligible based on patient's age to complete this topic RSV MONOCLONAL ANTIBODY Aged Out No l onger eligible based on patient's age to complete this topic Procedures Procedure Name Priority Date/Time Associated Diagnosis Comments BASIC METABOLIC PANEL STAT 04/09/2023 9:57 PM CDT CL AFF A.M.A. LIPID PANEL Routine 05/23/2008 3:52 PM ASSISTANT MANAGER Annual Physical Exam from Last 3 Months or Most Recently Relevant to Health Maintenance Results * (ABNORMAL) Basic metabolic panel (BMP) (04/09/2023 9:57 PM CDT) Sodium 140 135 - 145 mmol/L 04/09/2023 10:32 PM CDT [facility] Comment:Reference intervals for this test were updated on 04/08/2023 to more accurately reflect our healthy population. There may be differences in the flagging of prior results with similar values performed with this method. Interpretation of those prior results can be made in the context of the updated reference intervals. Potassium 3.9 3.4 - 5.3 mmol/L 04/09/2023 10:32 PM CDT [facility] Chloride 105 98 - 107 mmol/L 04/09/2023 10:32 PM CDT [facility] Carbon Dioxide (CO2) 26 22 - 29 mmol/L 04/09/2023 10:32 PM CDT [facility] Anion Gap 9 7 - 15 mmol/L 04/09/2023 10:32 PM CDT LABORATORY Urea Nitrogen 17.2 8.0 - 23.0 mg/dL 04/09/2023 10:32 PM CDT LABORATORY Creatinine 1.10 0.67 - 1.17 mg/dL 04/09/2023 10:32 PM CDT LABORATORY GFR Estimate 77 >60 mL/min/1. 73m2 04/09/2023 10:32 PM CDT LABORATORY Calcium 9.0 8.6 - 10.0 mg/dL 04/09/2023 10:32 PM CDT LABORATORY Glucose 108(H) 70 - 99 mg/dL 04/09/2023 10:32 PM CDT LABORATORY Blood BLOOD SPECIMEN / Unknown Venipuncture / Unknown 04/09/2023 9:57 PM CDT 04/09/2023 10:09 PM CDT Giana Villafana MD LAB - BLOOD ROLAND LE[facility] Organization Address City/State/ZIP Co de Phone Number LABORATORY [facility] [address] Lab (1st floor, no room number) [place] [address], [facility] [phone] * (ABNORMAL) A.M.A. LIPID PANEL (05/23/2008 3:52 PM ASSISTANT MANAGER) Cholesterol 188 0 - 200 mg/dL [facility] Comment: LDL Cholesterol is the primary guide to therapy: LDL-cholesterol goal in high risk patients is <100 mg/dL and in very high risk patients is <70 mg/dL. The NCEP recommends further evaluation of: patients with cholesterol <200 mg/dL if additional risk factors are present, cholesterol >240 mg/dL, triglycerides >150 mg/dL, or HDL <40 mg/dL. Triglycerides 228(H) 0 - 150 mg/dL [facility] HDL Cholesterol 30(L) 40 - 110 mg/dL [facility] LDL Cholesterol Calculated 112 0 - 129 mg/dL [facility] Comment: LDL Cholesterol is the primary guide to therapy: LDL-cholesterol goal in high risk patients is <100 mg/dL and in very high risk patients is <70 mg/dL. VLDL-Cholesterol 46(H) 0 - 30 mg/dL [facility] Cholesterol/HDL Ratio 6.2(H) 0.0 - 5.0 [facility] 05/23/2008 3:52 PM ASSISTANT MANAGER 05/23/2008 3:57 PM ASSISTANT MANAGER Edvin Sams MD LABORATORY [facility] from Last 3 Months or Most Recently Relevant to Health Maintenance Care Teams Bridge Design Engineer Relationship Specialty Start Date End Date System, Provider Not In PCP - General Clinic 04/09/23
--- OUTSIDE RECORDS SUMMARY | 2024-03-18 12:45 | XMS_ITS | Referral Summary ---
Author Organization [facility] Address [address] [place] [address] Care Team Providers Care Caterers Helper Name Role Phone System, Provider Not In [...] automated process. Provider to review and confirm.) Social History Tobacco Use Types Packs/Day Years [...] 103.4 kg (228 lb) 06/29/2008 11:00 AM BOTTOM LINER Height 174 cm (5' 8.5) 04/16/2007 9:00 AM CDT Body Mass Index 34.16 04/16/2007 9:00 AM CDT Plan of Treatment Not on file Procedures Procedure Name Priority Date/Time Associated Diagnosis Comments BASIC METABOLIC PANEL STAT 04/09/2023 9:57 PM CDT CL AFF A.M.A. LIPID PANEL Routine 05/23/2008 3:52 PM BOTTOM LINER Annual Physical Exam from Last 3 Months or Most Recently Relevant to Health Maintenance Results * (ABNORMAL) Basic metabolic panel (BMP) (04/09/2023 9:57 PM CDT) [facility] Signature Sodium 140 135 - 145 mmol/L 04/09/2023 [...] - 29 mmol/L 04/09/2023 10:32 PM CDT LABORATORY Anion Gap 9 7 - 15 mmol/L 04/09/2023 10:32 PM CDT [facility] Urea Nitrogen 17.2 8.0 - 23.0 mg/dL 04/09/2023 10:32 PM CDT [facility] Creatinine 1.10 0.67 - 1.17 mg/dL 04/09/2023 10:32 PM CDT [facility] GFR Estimate 77 >60 mL/min/1. 73m2 04/09/2023 10:32 PM CDT LABORATORY Calcium 9.0 8.6 - 10.0 mg/dL 04/09/2023 10:32 PM CDT LABORATORY Glucose 108(H) 70 - 99 mg/dL 04/09/2023 10:32 PM CDT LABORATORY Blood BLOOD SPECIMEN / Unknown Venipuncture / Unknown 04/09/2023 9:57 PM CDT 04/09/2023 10:09 PM CDT Giana Villafana MD LAB - BLOOD ROLAND LEYVA [facility] Organization Address City/State/ZIP Co de Phone Number LABORATORY [facility] [address] Lab (1st floor, no room number) [place] [address], [facility] [phone] * (ABNORMAL) A.M.A. LIPID PANEL (05/23/2008 3:52 PM BOTTOM LINER) Cholesterol 188 0 - 200 mg/dL [facility] Comment: LDL Cholesterol is the primary guide to therapy: LDL-cholesterol goal in high risk patients is <100 mg/dL and in very high risk patients is <70 mg/dL. The NCEP recommends further evaluation of: patients with cholesterol <200 mg/dL if additional risk factors are present, cholesterol >240 mg/dL, triglycerides >150 mg/dL, or HDL <40 mg/dL. Triglycerides 228(H) 0 - 150 mg/dL [facility] HDL Cholesterol 30(L) 40 - 110 mg/dL [facility] LDL Cholesterol Calculated 112 0 - 129 mg/dL [facility] Comment: LDL Cholesterol is the primary guide to therapy: LDL-cholesterol goal in high risk patients is <100 mg/dL and in very high risk patients is <70 mg/dL. VLDL-Cholesterol 46(H) 0 - 30 mg/dL [facility] Cholesterol/HDL Ratio 6.2(H) 0.0 - 5.0 [facility] 05/23/2008 3:52 PM BOTTOM LINER 05/23/2008 3:57 PM BOTTOM LINER Edvin Sams MD LABORATORY [facility] from Last 3 Months or Most Recently Relevant to Health Maintenance Care Teams Caterers Helper Relationship Specialty Start Date End Date System, Provider Not In PCP - General Clinic 04/09/23
[2024-03-18 13:37] VITALS: BP 142/76; PULSE 87; RESP 16
--- NOTE | 2024-03-18 13:54 | W.PM.STED ---
Stress Test Note Date Date Seen: 03/18/24 Date of test: 03/18/24 Providers Primary care provider: Nely Hall Stress test physician: Dana Steiner Stress Test Note Stress test ordered: Stress Echo Indication for test: Elevated calcium score, family history coronary artery disease Stress test medicine: None Results discussion: Resting EKG: Sinus bradycardia, 58 beats per minute. Resting blood pressure: 134/87 Stress test: Patient is consented on treadmill stress echo and agrees to proceed. Patient is exercised on the treadmill following standard Charles protocol. Patient was able to exercised 11 minutes 2nd, stopping due to reaching exercise capacity and being above his target heart rate. Patient had equivalent of 12.1 Mets. He exercised to a maximum heart rate of 151 beats per minute which was 111% of a calculated target of 136. He had a maximal blood pressure during exercise of 160/90 giving him a rate pressure product of 20,960. Occasional PVCs were seen but no arrhythmia noted, no concerning ischemic change of the EKG noted. Patient had no concerning symptoms during the stress test. Echo images are pending to couple this for a full formal diagnostic. Impression: Subjectively negative, objectively negative EKG portion of this stress test. Follow up suggested: Patient was discharged home in stable condition. He will await contact by his ordering provider once the formal echo results are in.
== END 2024-03-18 12:44 | disposition home or self-care (01) ==
LOC: STRESS 12:43
PROVIDERS: PCP Physician Assistant Medical; Visit Provider Physician Assistant Medical
DX: R93.1 Abnormal findings on diagnostic imaging of heart and coronary circulation (principal); Z82.49 Family history of ischemic heart disease and other diseases of the circulatory system
CPT/HCPCS: 93016; 93325; 93351

== ENCOUNTER 2024-05-10 08:35 | Outpatient (CLI) | payer OTHER, SELFPAY ==
--- OUTSIDE RECORDS SUMMARY | 2024-05-11 15:59 | XMS_ITS | Referral Summary ---
Author Organization [facility] Address [address] [place] [address] Care Team Providers Care Systems Mechanic Name Role Phone System, Provider Not In Primary Care Provider Un available Allergies Active Allergy Reactions Criticality Noted Date Comments Demerol Visual Disturbance 01/10/2005 Penicillins Rash 01/10/2005 Tetanus Toxoid Rash 01/10/2005 Tetanus-Diphtheria Toxoids Td 04/16/2007 High fever,nausea Medications ORDER FOR DMEIndications:R outine general medical examination at a health care facility Blood pressure Cuff 1 0 6 Active MULTIPLE VITAMIN OR TABSIndications: Acute prostatitis,Diso rders of bursae and tendons in shoulder region, unspecified None Entered Activ e RA FIBER SUPPLEMENT ORIndications:Ro utine general medical examination at a health care facility 1-2 pills qd Active AVODART 0.5 MG OR CAPSIndications: Benign 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 [...] Recorded Sex Assigned at Not on file Legal Sex Male 2:58 AM RAILCAR CARPENTER Gender Identity Not on file Sexual Orientation [...] 103.4 kg (228 lb) 06/29/2008 11:00 AM RAILCAR CARPENTER Height 174 cm (5' 8.5) 04/16/2007 9:00 AM CDT Body Mass Index 34.16 04/16/2007 9:00 AM CDT Plan of Treatment Not on file Procedures Procedure Name Priority Date/Time Associated Diagnosis Comments BASIC METABOLIC PANEL STAT 04/09/2023 9:57 PM CDT CL AFF A.M.A. LIPID PANEL Routine 05/23/2008 3:52 PM RAILCAR CARPENTER Annual Physical Exam from Last 3 Months or Most Recently Relevant to Health Maintenance Results * (ABNORMAL) Basic metabolic panel (BMP) (04/09/2023 9:57 PM CDT) [facility] Sodium 140 135 - 145 mmol/L 04/09/2023 [...] 9:57 PM CDT 04/09/2023 10:09 PM CDT us Giana Villafana MD LAB - BLOOD ORDERABLES F inal Result LABORATORY [facility] [address] [facility] [address] [facility] (1st floor, no room number) [place] [address] [phone] * (ABNORMAL) A.M.A. LIPID PANEL (05/23/2008 3:52 PM RAILCAR CARPENTER) [facility] Signature Cholesterol 188 0 - 200 mg/dL [facility] Comment: LDL Cholesterol is the primary guide to therapy: LDL-cholesterol goal in high risk patients is <100 mg/dL and in very high risk patients is <70 mg/dL. The NCEP recommends further evaluation of: patients with cholesterol <200 mg/dL if additional risk factors are present, cholesterol >240 mg/dL, triglycerides >150 mg/dL, or HDL <40 mg/dL. Triglycerides 228(H) 0 - 150 mg/dL [facility] HDL Cholesterol 30(L) 40 - 110 mg/dL [facility] LDL Cholesterol Calculated 112 0 - 129 mg/dL [facility] Comment: LDL Cholesterol is the primary guide to therapy: LDL-cholesterol goal in high risk patients is <100 mg/dL and in very high risk patients is <70 mg/dL. VLDL-Cholesterol 46(H) 0 - 30 mg/dL [facility] Cholesterol/HDL Ratio 6.2(H) 0.0 - 5.0 [facility] 05/23/2008 3:52 PM RAILCAR CARPENTER 05/23/2008 3:57 PM RAILCAR CARPENTER us Edvin Sams MD LABORATORY Final Result [facility] [address] [place] [address] from Last 3 Months or Most Recently Relevant to Health Maintenance Insurance [facility] CHO[facility] Care Teams Systems Mechanic Relationship Specialty Start Date End Date System, Provider Not In PCP - General Clinic 04/09/23
--- OUTSIDE RECORDS SUMMARY | 2024-05-11 15:59 | XMS_ITS | Clinical Summary ---
[facility] Address [address] [place] [address] Care Team Providers Care Quilt Stuffer Name Role Phone Unassigned, Provider Primary Care Provider Unava ilable Source Comments You are receiving this document as you are listed as the primary care provider,follow-up provider, or the patient has been referred to you for consultation.This is in compliance with the Medicare and[employer] Health[employer] EHR Incentive Program,which states Providers who transition their patient to another setting of careor provider of care or refers their patient to another provider of care shouldprovide summary care record for each transition of care or referral. [facility] Allergies No known active allergies Medications Medication Sig Dispensed Refills Start Date End Date Status lisinopril (ZESTRIL) 10 MG tabletIndications:Hyp ertension Take 10 mg by mouth daily. Indications: High Blood Pressure Disorder Active Active Problems No known active problems Social History Tobacco Use Types Packs/Day Years Used Date Smoking Tobacco: Never Smokeless Tobacco: Never Sex and Gender Information Value Date Recorded [...] Last Done Comments Colon Cancer Screening Plan Due 1965 Hep C Screening (Preventive Services) 1965 PSA Screening Discussion 1964 HIV Screening (Preventive Services) 1980 Adult Preventive Visit 01/29/1982 DTaP/Tdap/Td (1 - Tdap) 01/29/1983 Cholesterol 01/29/1999 Zoster/Shingles (1 of 2) 01/29/2014 COVID-19 Vaccine (3 season) 2024 10/21/2020, 09/30/2020 Influenza (#1) 2024 04/10/2020, 1010/2018, 04/27/2018, Additional history exists RSV (1 - 1-dose 75+ series) 01/29/2039 HepA Aged Out No longer eligi ble based on patient's age to complete this topic HepB Aged Out No longer eligi ble based on patient's age to complete this topic Hib Aged Out No longer eligi ble based on patient's age to complete this topic IPV (Polio) Aged Out No longer eligi ble based on patient's age to complete this topic Infant RSV Aged Out No longer eligi ble based on patient's age to complete this topic MCV4 Aged Out No longer eligi ble based on patient's age to complete this topic Pneumococcal Aged Out No longer eligi ble based on patient's age to complete this topic Care Teams Quilt Stuffer Relationship Specialty Start Date End Date Unassigned, Provider [address] [place] [address] PCP - General 06/16/00
--- OUTSIDE RECORDS SUMMARY | 2024-05-11 15:59 | XMS_ITS | Clinical Summary ---
Author Organization [facility] Address [address] [place] [id number] Care Team Providers Care Child Welfare Social Worker Name Role Phone System, Provider Not In [...] on file Legal Sex Male 2:58 AM LINE THERAPIST Gender Identity Not on file Sexual Orientation [...] 103.4 kg (228 lb) 06/29/2008 11:00 AM LINE THERAPIST Height 174 cm (5' 8.5) 04/16/2007 9:00 AM CDT Body Mass Index 34.16 04/16/2007 9:00 AM CDT Plan of Treatment Health Maintenance Due Date Last Done Comments ADVANCE CARE PLANNING 1965 ANNUAL REVIEW OF HM ORDERS 1964 CT COLONOGRAPHY 1964 FIT 1965 FLEX SIG 1965 sDNA (Cologuard) 1965 HIV SCREENING 01/29/1979 HEPATITIS C SCREENING 01/29/1982 DTAP/TDAP/TD IMMUNIZATION (1 - Tdap) 01/29/1989 YEARLY PREVENTIVE VISIT 05/23/2009 05/23/20 08, 04/16/2007, 03/18/2006, Additional history exists LIPID 05/23/2013 05/23/2008, 10/2006, 03/24/2006, Additional history exists ZOSTER IMMUNIZATION (2 of 2) 08/15/2021 06/20/2021 PHQ-2 (once per calendar year) 2023 RSV VACCINE (1 - Risk 60-74 years 1-dose series) 2024 COVID-19 Vaccine ( season) 2024 07/19/2021, 10/21/2020, 09/30/2020 INFLUENZA VACCINE (#1) 2024 2, 05/08/2021, 04/10/2020, Additional history exists BMP 04/09/2024 04/09/2023, 05/14, 04/16/2007, Additional history exists GLUCOSE 04/09/2026 04/09/2023, 05/14, 04/16/2007, Additional history exists COLONOSCOPY 03/14/2031 03/14/2021 COLORECTAL CANCER SCREENING 03/14/2031 HPV IMMUNIZATION Aged Out No longer e ligible based on patient's age to complete this topic MENINGITIS IMMUNIZATION Aged Out No l onger eligible based on patient's age to complete this topic Pneumococcal Vaccine: Pediatrics (0 to 5 Years) and At-Risk Patients (6 to 64 Years) Aged Out No longer eligible based on patient's age to complete this topic RSV MONOCLONAL ANTIBODY Aged Out No l onger eligible based on patient's age to complete this topic Procedures Procedure Name Priority Date/Time Associated Diagnosis Comments BASIC METABOLIC PANEL STAT 04/09/2023 9:57 PM CDT CL AFF A.M.A. LIPID PANEL Routine 05/23/2008 3:52 PM LINE THERAPIST Annual Physical Exam from Last 3 Months or Most Recently Relevant to Health Maintenance Results * (ABNORMAL) Basic metabolic panel (BMP) (04/09/2023 9:57 PM CDT) Pathologist [facility] Sodium 140 135 - 145 mmol/L 04/09/2023 [...] - 107 mmol/L 04/09/2023 10:32 PM CDT LABORATORY Carbon Dioxide (CO2) 26 22 - [...] - BLOOD ORDERABLES F inal Result LABORATORY [facility] [address] [facility] (1st floor, no room number) [place] [address], [facility] [phone] * (ABNORMAL) A.M.A. LIPID PANEL (05/23/2008 3:52 PM LINE THERAPIST) [facility] Signature Cholesterol 188 0 - 200 mg/dL [facility] Comment: LDL Cholesterol is the primary guide to therapy: LDL-cholesterol goal in high risk patients is <100 mg/dL and in very high risk patients is <70 mg/dL. The NCEP recommends further evaluation of: patients with cholesterol <200 mg/dL if additional risk factors are present, cholesterol >240 mg/dL, triglycerides >150 mg/dL, or HDL <40 mg/dL. Triglycerides 228(H) 0 - 150 mg/dL [facility] HDL Cholesterol 30(L) 40 - 110 mg/dL [facility] LDL Cholesterol Calculated 112 0 - 129 mg/dL [facility] Comment: LDL Cholesterol is the primary guide to therapy: LDL-cholesterol goal in high risk patients is <100 mg/dL and in very high risk patients is <70 mg/dL. VLDL-Cholesterol 46(H) 0 - 30 mg/dL [facility] Cholesterol/HDL Ratio 6.2(H) 0.0 - 5.0 [facility] 05/23/2008 3:52 PM LINE THERAPIST 05/23/2008 3:57 PM LINE THERAPIST us Edvin Sams MD LABORATORY Final Result [facility] [address] [place] [address] from Last 3 Months or Most Recently Relevant to Health Maintenance Insurance [facility] Care Teams Child Welfare Social Worker Relationship Specialty Start Date End Date System, Provider Not In PCP - General Clinic 04/09/23
== END 2024-05-10 08:36 | disposition home or self-care (01) ==
LOC: NFLDREF 05-11 15:53
PROVIDERS: PCP Physician Assistant Medical; Referring Provider Physician Assistant Medical; Visit Provider Physician Assistant Medical
DX: Z00.00 Encounter for general adult medical examination without abnormal findings (principal); I10 Essential (primary) hypertension; E78.2 Mixed hyperlipidemia; Z12.5 Encounter for screening for malignant neoplasm of prostate; Z13.29 Encounter for screening for other suspected endocrine disorder
CPT/HCPCS: 80053; 80061; 84443; G0103

== ENCOUNTER 2025-05-31 07:51 | Outpatient (CLI) | payer OTHER, SELFPAY | END 2025-05-31 07:52 | disposition home or self-care (01) | LOC: NFLDREF 06-04 16:22 | PROVIDERS: PCP Physician Assistant Medical; Referring Provider Physician Assistant Medical; Visit Provider Physician Assistant Medical | DX: Z00.00 Encounter for general adult medical examination without abnormal findings (principal); I10 Essential (primary) hypertension; E78.2 Mixed hyperlipidemia | CPT/HCPCS: 80053; 80061; 84443; G0103 ==